=== PATIENT | male | born 1965 | race Caucasian/White ===

== ENCOUNTER → 2017-08-29 | Emergency (ER) | payer OTHER ==
[~2017-08-29] VITALS: Ht 165.1 cm; Wt 79.4 kg
[~2017-08-29] MED LIST: ADVAIR 100-501 EACH; ALLEGRA-D 12 H1 EACH; AMARIL; AZOR 10/40 MG T1 TAB; CARDIZEM CD240 MG; CHILDREN'S FLO9.9 ML; ENALAPRIL MALEA20 MG; HYDRODIURIL12.5 MG; LASIX20 MG; LIPITOR20 MG; PRILOSEC OTC20 MG; SINGULAIR 10MG10 MG; SINGULAIR10 MG
== END | disposition home or self-care (01) ==
LOC: ER 07:12 → CPU-OBS 07:30
DX: R07.89 Other chest pain (principal)

== ENCOUNTER 2020-09-10 14:27 | Emergency (ER) | payer OTHER ==
[~2020-09-10] VITALS: Ht 162.6 cm; Wt 83.0 kg
== END 2020-09-10 18:00 | disposition home or self-care (01) ==
LOC: ER 14:27
DX: U07.1 COVID-19 (principal); B33.8 Other specified viral diseases

== ENCOUNTER 2021-01-29 08:16 | Emergency (ER) | payer OTHER ==
[~2021-01-29] VITALS: Ht 162.6 cm; Wt 83.0 kg
[2021-01-29] MEDS ORDERED: NORFLEX100MG PO (12:20)
[2021-01-29] MEDS ORDERED: ULTRAM50 MG PO (12:23)
== END 2021-01-29 13:45 | disposition home or self-care (01) ==
LOC: ER 08:16
DX: M54.5 Low back pain (principal)

== ENCOUNTER 2021-10-01 06:34 | Day surgery (SDC) | payer OTHER ==
[~2021-10-01 06:34] MED LIST changes: +NORFLEX100MG PO; +ULTRAM50 MG PO
== END 2021-10-01 11:30 | disposition home or self-care (01) ==
LOC: AMB-ENDOS 06:34
PROVIDERS: ATTEND Internal Medicine Gastroenterology
DX: K63.5 Polyp of colon (principal); Z88.6 Allergy status to analgesic agent; Z91.012 Allergy to eggs; Z91.040 Latex allergy status; K21.9 Gastro-esophageal reflux disease without esophagitis

== ENCOUNTER → 2024-12-13 07:09 | Outpatient (CLI) | payer OTHER | END | disposition home or self-care (01) | LOC: NUCLEAR 07:09 | DX: M06.09 Rheumatoid arthritis without rheumatoid factor, multiple sites (principal) | CPT/HCPCS: 78315; A9503 ==

== ENCOUNTER 2024-12-13 08:00 | Outpatient (CLI) | payer OTHER | END 2024-12-13 08:04 | disposition home or self-care (01) | LOC: SONOGRAMA 08:00 | DX: M06.09 Rheumatoid arthritis without rheumatoid factor, multiple sites (principal) ==

== ENCOUNTER 2024-12-25 12:38 | Outpatient (CLI) | payer OTHER | END 2024-12-25 12:43 | disposition home or self-care (01) | LOC: MRI 12:38 | DX: G44.211 Episodic tension-type headache, intractable (principal); G50.1 Atypical facial pain | CPT/HCPCS: 70551 ==